=== PATIENT | female | born 1965 | race Caucasian/White ===

== ENCOUNTER 2024-12-29 10:40 | Emergency (ER) | payer MEDICAID ==
[~2024-12-29] VITALS: Ht 172.7 cm; Wt 82.0 kg
[2024-12-29 10:46] VITALS: TEMP 36.7; O2SAT 100
[2024-12-29 11:13] LABS: BASOPHILS % 0.8 % (0.0-2.0); EOSINOPHILS % 2.1 % (0.0-5.0); HEMATOCRIT. 41.0 % (36.0-48.0); HEMOGLOBIN. 14.0 g/dL (12.0-16.0); LYMPHOCYTES % 42.5 % (20.0-50.0); MEAN PLATELET VOLUME 9.3 fl (7.4-10.4); MONOCYTES % 7.1 % (2.0-8.0); NEUTROPHILS % 47.5 % (40.0-76.0); PLATELET 190 x1000/uL (130-400); RED BLOOD CELL COUNT 4.38 mill/uL (4.2-5.4); RED CELL DISTRIBUTION WIDTH 13.2 % (11.6-14.6)
[2024-12-29 11:39] LABS: HCG SCREEN NEGATIVE
[2024-12-29 11:48] LABS: TROPONIN I HIGH SENSITIVITY < 4 ng/L (3.0-34)
[2024-12-29 11:49] LABS: ASPARTATE AMINOTRANSFERASE 24 IU/L (<34); BILIRUBIN DIRECT < 0.1 mg/dL (<=3.0)
[2024-12-29 11:50] LABS: BILIRUBIN TOTAL 0.4 mg/dL (0.1-1.0); PROTEIN TOTAL 7.3 g/dL (6.0-8.3)
[2024-12-29] MEDS: ONDANSETRON 4MG ODT PO NR (11:55)
[2024-12-29] MEDS: FAMOTIDINE 20MG TABLET PO NR (11:55)
[2024-12-29] MEDS: KETOROLAC 30MG/ML VIAL IM NR (12:32)
[2024-12-29 12:58] LABS: CREATININE 0.6 mg/dL (0.6-1.0); UREA NITROGEN BLOOD 13 mg/dL (9-23)
[2024-12-29 13:03] LABS: CLARITY URINE CLEAR (CLEAR); COLOR URINE YELLOW (YELLOW); GLUCOSE URINE NEGATIVE (NEGATIVE); KETONES URINE TRACE (NEGATIVE); LEUKOCYTE ESTERASE URINE NEGATIVE (NEGATIVE); NITRITE URINE NEGATIVE (NEGATIVE); OCCULT BLOOD URINE TRACE (NEGATIVE); PH URINE 5.5 (4.5-8.0); PROTEIN URINE NEGATIVE (NEGATIVE); SPECIFIC GRAVITY URINE 1.023 (1.005-1.030); UROBILINOGEN URINE 0.2 E.U./dL (0.2-1.0)
[2024-12-29 13:11] LABS: BACTERIA URINE 1+; SQUAMOUS EPITHELIAL CELL URINE 1+ /lpf (RARE/1+); YEAST URINE NONE SEEN
[2024-12-29] MEDS ORDERED: POLY17PO3 MT (13:26)
[2024-12-29] MEDS ORDERED: CEPH500C2 MT (13:26)
[2024-12-29 14:51] VITALS: BP 115/64; PULSE 72; RESP 16; O2SAT 98
== END 2024-12-29 14:53 | disposition home or self-care (01) ==
LOC: ER 10:56
DX: K59.00 Constipation, unspecified (principal); R10.84 Generalized abdominal pain; Z90.49 Acquired absence of other specified parts of digestive tract
CPT/HCPCS: 80076; 80048; 81003; 84703; 83690; 85025; 84484; 36415; 74176; 96372; 99285; Q0162; J1885; Z7610